=== PATIENT | female | born 1995 | race Caucasian/White ===

== ENCOUNTER 2018-11-18 08:03 | Emergency (ER) | payer OTHER, BC ==
[~2018-11-18] VITALS: Ht 157.5 cm; Wt 65.8 kg
[2018-11-18] MEDS ORDERED: ARIP10 PO (08:13)
[2018-11-18] MEDS ORDERED: CYCL10 PO (08:14)
[2018-11-18] MEDS ORDERED: BUSP10 PO (08:14)
[2018-11-18] MEDS ORDERED: DULO60 PO (08:14)
[2018-11-18] MEDS ORDERED: PARO30 PO (08:14)
[2018-11-18] MEDS ORDERED: GABA800 PO (08:15)
[2018-11-18] MEDS ORDERED: QUET25 PO ×2 (08:15)
[2018-11-18] MEDS ORDERED: GABA600 PO (08:15)
[2018-11-18] MEDS ORDERED: IBUP800 PO (08:15)
[2018-11-18] MEDS ORDERED: Percocet 5-3251 EACH PO (08:16)
[2018-11-18] MEDS ORDERED: ALPR1 PO (08:16)
[2018-11-18] MEDS ORDERED: Norco 10-325 T1 EACH PO (08:16)
[2018-11-18] MEDS ORDERED: ROPI.25 PO (08:16)
== END 2018-11-18 10:11 | disposition home or self-care (01) ==
LOC: ER 08:03
DX: T23.072A Burn of unspecified degree of left wrist, initial encounter (principal); T23.071A Burn of unspecified degree of right wrist, initial encounter; T31.0 Burns involving less than 10% of body surface; M54.5 Low back pain; M54.6 Pain in thoracic spine; V43.52XA Car driver injured in collision with other type car in traffic accident, initial encounter; Z88.0 Allergy status to penicillin; Z88.1 Allergy status to other antibiotic agents; Z91.040 Latex allergy status; Z79.899 Other long term (current) drug therapy
CPT/HCPCS: 96372; 99284-25; J1885